=== PATIENT | male | born 1980 | race Caucasian/White ===

== ENCOUNTER 2016-12-02 23:46 | Emergency (ER) | payer OTHER ==
[~2016-12-02] VITALS: Ht 182.9 cm; Wt 81.6 kg
--- NOTE | 2016-12-02 23:46 | NUR ---
Patient to ER chair for evaluation. Report given to HAMMAD Ramos.
--- NOTE | 2016-12-02 23:47 | NUR ---
ER Dr. Fragoso at bedside examining patient.
--- NOTE | 2016-12-02 23:50 | NUR ---
Pt here fpr blood draw s/p fingerstick while doing suture repair.
--- NOTE | 2016-12-03 00:30 | NUR ---
Discharged. VSS. No s/s distress noted.
[2016-12-07 08:25] LABS: HEPATITIS B CORE AB, TOTAL Negative (Negative); HEPATITIS B SURFACE AG Negative (Negative); HEPATITIS C VIRUS AB <0.1 s/co ratio (0.0-0.9)
== END 2016-12-03 00:30 | disposition home or self-care (01) ==
LOC: SED 23:46
DX: Z77.21 Contact with and (suspected) exposure to potentially hazardous body fluids (principal)
CPT/HCPCS: 36415; 86704; 86706; 86803; 87340; 99283